=== PATIENT | male | born 1955 | race Caucasian/White ===

== ENCOUNTER 2017-03-16 07:57 | Emergency (ER) | payer SELFPAY ==
[~2017-03-16] VITALS: Ht 180.3 cm; Wt 78.0 kg
[2017-03-16] MEDS ORDERED: ACETAMINOPHEN 500MG TABLET PO ONE (13:30)
[2017-03-16 13:45] VITALS: BP 132/78
== END 2017-03-16 14:14 | disposition home or self-care (01) ==
LOC: ER 08:09
DX: K08.89 Other specified disorders of teeth and supporting structures (principal)
CPT/HCPCS: 99283

== ENCOUNTER 2018-04-22 03:40 | Emergency (ER) | payer MEDICAID ==
[~2018-04-22] VITALS: Ht 180.3 cm; Wt 78.0 kg
[2018-04-22] MEDS ORDERED: HYDROCODONE/ACETAMINOPHEN 5/325MG TABLET PO ONE (07:45)
[2018-04-22] MEDS ORDERED: CEPHALEXIN 250MG CAPSULE PO ONE (07:45)
[2018-04-22] MEDS ORDERED: SULFAMETHOXAZOLE/TRIMETHOPRIM 400/80MG TAB PO ONE (07:45)
[2018-04-22 09:07] VITALS: BP 131/67
== END 2018-04-22 09:11 | disposition home or self-care (01) ==
LOC: ER 03:40
DX: L02.416 Cutaneous abscess of left lower limb (principal)
CPT/HCPCS: 99284

== ENCOUNTER 2019-02-23 09:58 | Emergency (ER) | payer SELFPAY ==
[~2019-02-23] VITALS: Ht 180.3 cm; Wt 78.0 kg
[2019-02-23] MEDS ORDERED: SODIUM CHLORIDE 0.9% 1,000 ML IV ONE (11:39)
[2019-02-23] MEDS ORDERED: ONDANSETRON HCL 4MG/2ML INJ IV STA (11:39)
[2019-02-23] MEDS ORDERED: KETOROLAC 30MG/ML VIAL IV STA (11:39)
[2019-02-23 12:17] LABS: HEMATOCRIT. 37.5 % (42.0-52.0); MEAN CORPUSCULAR HEMOGLOBIN 30.7 pg (28.0-32.0); MEAN PLATELET VOLUME 8.6 fl (7.4-10.4); PLATELET 132 x1000/uL (130-400); RED BLOOD CELL COUNT 4.22 mill/uL (4.7-6.1); RED CELL DISTRIBUTION WIDTH 13.1 % (11.6-14.6)
[2019-02-23 12:22] LABS: CHLORIDE 106 mEq/L (98-107)
[2019-02-23 14:15] VITALS: BP 131/65
[2019-02-23 14:27] LABS: PLATELET ESTIMATE NORMAL
== END 2019-02-23 15:15 | disposition home or self-care (01) ==
LOC: ER 09:58
DX: J20.9 Acute bronchitis, unspecified (principal); R05 Cough; R09.89 Other specified symptoms and signs involving the circulatory and respiratory systems
CPT/HCPCS: 36415; 71045; 80053; 85025; 87070; 87430; 87804; 96374; 96375; 99284; J1885; J2405; J7030